=== PATIENT | female | born 1955 | race Hispanic/Latino ===

== ENCOUNTER 2017-10-01 12:21 | Outpatient (CLI) | payer MEDICARE ==
--- NOTE | 2017-10-01 14:08 | XRay Report ---
XRAY RIGHT SHOULDER THREE VIEWS: 10/01/17 12:21:00 CLINICAL: Right shoulder pain. FINDINGS: No fracture or dislocation. Slight inferior subluxation of the humeral head relative to the glenoid. The glenohumeral joint is otherwise normal. Normal acromioclavicular joint. Normal soft tissues. IMPRESSION: Slight inferior subluxation of the humerus consistent with laxity of the joint capsule.
== END 2017-10-01 12:22 | disposition home or self-care (01) ==
LOC: SPVIMAG 12:21
PROVIDERS: ATTEND Orthopaedic Surgery
DX: S43.031A Inferior subluxation of right humerus, initial encounter (principal); X58.XXXA Exposure to other specified factors, initial encounter; Y93.89 Activity, other specified; Y92.89 Other specified places as the place of occurrence of the external cause; Y99.8 Other external cause status